=== PATIENT | male | born 1980 | race Caucasian/White ===

== ENCOUNTER 2022-02-12 10:20 | Emergency (ER) | payer OTHER ==
[~2022-02-12] VITALS: Ht 180.3 cm; Wt 105.2 kg
[2022-02-12] MEDS ORDERED: OSEL75CA PO (12:51)
== END 2022-02-12 13:14 | disposition home or self-care (01) ==
LOC: ER 10:20
DX: J10.1 Influenza due to other identified influenza virus with other respiratory manifestations (principal); Z88.0 Allergy status to penicillin